=== PATIENT | female | born 1955 | race Caucasian/White ===

== ENCOUNTER → 2017-10-29 10:36 | Outpatient (CLI) | payer BC, SELFPAY ==
--- NOTE | 2017-10-29 10:40 | DI.REPORT_ITS ---
SYMPTOM/DIAGNOSIS: F/U LT ORIF TRIMALLEOLAR ANKLE FX RIGHT ANKLE: Three views. Comparison is 10/01/17. There are again seen side plate and screws transfixing the fractures of the distal right tibia and fibula. No change in alignment of the orthopaedic hardware or fracture components as seen. No new fractures or dislocations are present. Degenerative changes are seen in the hind foot. IMPRESSION: Stable right ankle.
== END ==
PROVIDERS: PCP Family Medicine; Visit Provider Student in an Organized Health Care Education/Training Program
DX: S82.851D Displaced trimalleolar fracture of right lower leg, subsequent encounter for closed fracture with routine healing (principal)
CPT/HCPCS: 73610

== ENCOUNTER 2017-12-10 12:48 | Outpatient (CLI) | payer BC, SELFPAY ==
--- NOTE | 2017-12-10 10:49 | DI.RAD_ITS ---
SYMPTOMS/DIAGNOSIS: S/P OPEN REDUCTION AND INTERNAL FIXATION, RIGHT ANKLE RIGHT ANKLE: Three views. Comparison is 10/29/17. There are again seen sideplates and screws transfixing the fractures of the medial malleolus and the distal fibula. No change in alignment of the orthopedic hardware or fracture components is noted. Moderately severe degenerative changes are seen at the ankle and hindfoot. Spurs are seen at the posterior calcaneus. Dystrophic calcifications are seen in the soft tissues in the region of the Achilles tendon.
== END 2017-12-10 13:08 ==
PROVIDERS: PCP Family Medicine; Visit Provider Student in an Organized Health Care Education/Training Program
DX: S82.851D Displaced trimalleolar fracture of right lower leg, subsequent encounter for closed fracture with routine healing (principal)
CPT/HCPCS: 73610

== ENCOUNTER 2018-01-07 11:08 | Outpatient (CLI) | payer BC, SELFPAY ==
--- NOTE | 2018-01-07 11:03 | DI.RAD_ITS ---
SYMPTOMS/DIAGNOSIS: S/P RT ANKLE ORIF RIGHT ANKLE: Two views were obtained and show plate and screw fixation of a bimalleolar fracture with no gross interval change in alignment of the fracture fragments or fixation apparatus in comparison with examination of 12/10/17.
== END 2018-01-07 11:28 ==
PROVIDERS: PCP Family Medicine; Visit Provider Student in an Organized Health Care Education/Training Program
DX: S82.851D Displaced trimalleolar fracture of right lower leg, subsequent encounter for closed fracture with routine healing (principal)
CPT/HCPCS: 73600

== ENCOUNTER 2018-01-28 12:27 | Outpatient (REF) | payer BC, SELFPAY ==
[2018-01-28 21:10] LABS: Cholesterol 181 mg/dL (50-200); HDL Cholesterol 77 mg/dL (40-60); LDL CHOLESTEROL 88 mg/dL (<100); Triglyceride 64 mg/dL (30-150)
== END 2018-01-28 12:47 ==
LOC: NCHCN 12:27
PROVIDERS: PCP Family Medicine; Visit Provider Family Medicine
DX: E78.5 Hyperlipidemia, unspecified (principal)
CPT/HCPCS: 80061; 83721

== ENCOUNTER 2018-11-12 08:11 | Outpatient (REF) | payer BC, SELFPAY ==
[2018-11-12 13:44] LABS: Anion Gap 9.5 mmol/L (3-11); BUN 26 mg/dL (7-18); CO2 25.5 mmol/L (21.0-32.0); CREATININE 0.84 mg/dL (0.55-1.02); Calcium 8.7 mg/dL (8.5-10.1); Chloride 105 mmol/L (98-107); Glucose 105 mg/dL (70-100); Potassium 4.6 mmol/L (3.5-5.1); Sodium 140 mmol/L (136-145)
[2018-11-13 13:31] LABS: ALT 24 U/L (12-78); AST 16 U/L (15-37); Albumin 3.5 g/dL (3.4-5.0); Alkaline Phosphatase 64 U/L (46-116); Bilirubin, Total 0.1 mg/dL (0.2-1.0)
== END 2018-11-12 08:31 ==
LOC: NCHCN 08:11
PROVIDERS: PCP Family Medicine; Visit Provider Family Medicine
DX: Z00.00 Encounter for general adult medical examination without abnormal findings (principal); E78.5 Hyperlipidemia, unspecified
CPT/HCPCS: 80048; 80053; 87798; 86618

== ENCOUNTER 2018-11-12 11:12 | Outpatient (CLI) | payer BC, SELFPAY ==
[2018-11-12 12:33] LABS: D-Dimer 815 ng/mlFEU (<500)
== END 2018-11-12 11:32 ==
PROVIDERS: PCP Family Medicine; Visit Provider Internal Medicine
DX: M79.661 Pain in right lower leg (principal); M17.9 Osteoarthritis of knee, unspecified
CPT/HCPCS: 36415; 85379

== ENCOUNTER 2018-11-13 08:13 | Outpatient (REF) | payer BC, SELFPAY ==
[2018-11-13 13:28] LABS: Calculated LDL 74 mg/dL; Cholesterol 156 mg/dL (50-200); HDL Cholesterol 73 mg/dL (40-60); Triglyceride 45 mg/dL (30-150)
[2018-11-14 12:15] LABS: Lyme Ab w Rflx to Lyme Confirm Negative
[2018-11-15 22:25] LABS: Anaplasma phagocytophilum Negative (Negative); B. miyamotoi PCR Negative (Negative); Babesia divergens/MO-1 Negative (Negative); Babesia duncani Negative (Negative); Babesia microti Negative (Negative); Ehrlichia chaffeensis Negative (Negative); Ehrlichia ewingii/canis Negative (Negative); Ehrlichia muris eauclairensis Negative (Negative)
== END 2018-11-13 08:33 ==
LOC: NCHCN 08:13
PROVIDERS: PCP Family Medicine; Visit Provider Family Medicine
DX: Z00.00 Encounter for general adult medical examination without abnormal findings (principal); E78.5 Hyperlipidemia, unspecified; F32.9 Major depressive disorder, single episode, unspecified; M25.50 Pain in unspecified joint; E28.319 Asymptomatic premature menopause; F10.10 Alcohol abuse, uncomplicated; W57.XXXA Bitten or stung by nonvenomous insect and other nonvenomous arthropods, initial encounter; T14.8XXA Other injury of unspecified body region, initial encounter
CPT/HCPCS: 80061; 83721; 87798; 86618

== ENCOUNTER 2018-11-20 09:23 | Outpatient (CLI) | payer BC, SELFPAY ==
--- NOTE | 2018-11-20 09:18 | DI.RAD_ITS ---
SYMPTOM/DIAGNOSIS: PAIN RIGHT KNEE: Two views. No priors. Mild periarticular spurring is seen in the medial femoral tibial joint space in the patellofemoral joint. There is chondrocalcinosis present. The joint spaces are otherwise well maintained. The bones are intact and normally mineralized. There is an enthesophyte at the superior patella. There is a small suprapatellar joint effusion. IMPRESSION: Mild to moderate degenerative changes of the right knee.
== END 2018-11-20 09:43 ==
PROVIDERS: PCP Family Medicine; Visit Provider Orthopaedic Surgery
DX: M25.561 Pain in right knee (principal); M17.11 Unilateral primary osteoarthritis, right knee
CPT/HCPCS: 73560

== ENCOUNTER 2018-12-19 11:46 | Outpatient (CLI) | payer BC, SELFPAY ==
--- NOTE | 2018-12-19 12:30 | DI.MAMMO_ITS ---
EXAM: MAMMO SCREENING CLINICAL HISTORY: SCREENING, Z12.31. TECHNIQUE: Mammograms were interpreted according to the usual protocol including computer analysis w [employer] CAD system, tomosynthesis and C-view imaging. COMPARISON: Comparison is made with previous exams. FINDINGS: The breasts are of moderate density with fairly symmetrical distribution of fibroglandular tissue. N o dominant mass or clumped microcalcification is identified in either breast. Current examination is compared with previous examinations including July 2017 and there has been no gross interval change i n appearance in comparison with the previous studies. IMPRESSION: No specific evidence of malignancy at this time. Routine screening examinations are suggested at year ly intervals in this age group according to the ACS ACR guidelines. Category 1. Breast density, categ ory B. BI-RADS Cat 1 - Negative. Breast Density - Category B - Scattered areas of fibroglandular density.
== END 2018-12-19 12:06 ==
PROVIDERS: PCP Family Medicine; Visit Provider Family Medicine
DX: Z12.31 Encounter for screening mammogram for malignant neoplasm of breast (principal)
CPT/HCPCS: 77063; 77067

== ENCOUNTER 2018-12-19 13:46 | Outpatient (CLI) | payer BC, SELFPAY ==
--- NOTE | 2018-11-12 14:02 | DI.US_ITS ---
SYMPTOMS/DIAGNOSIS: RIGHT CALF PAIN, M79.661; POSITIVE D-DIMER DUPLEX VENOUS ULTRASOUND, RIGHT LOWER EXTREMITY: Duplex evaluation of the deep venous system was performed according to the usual protocol. The deep veins are freely compressible throughout to the level of the popliteal veins. There is normal Doppler flow visible throughout and there is excellent flow augmentation with manual calf compression. CONCLUSION: No evidence of deep venous thrombosis. Note is made of Ochoa's cyst measuring about 24 x 4 x 27 mm.
== END 2018-12-19 14:06 ==
PROVIDERS: PCP Family Medicine; Visit Provider Internal Medicine
DX: M79.661 Pain in right lower leg (principal); R79.1 Abnormal coagulation profile; M71.21 Synovial cyst of popliteal space [Baker], right knee
CPT/HCPCS: 93971

== ENCOUNTER 2019-04-30 17:17 | Emergency (ER) | payer BC, SELFPAY ==
[2019-04-30 17:30] VITALS: BP 142/75; PULSE 64; RESP 18; TEMP 36.6; O2SAT 95
--- NOTE | 2019-04-30 18:08 | W.ED.GENAD ---
Discharge Plan Disposition Patient Disposition: HOME Condition: Good Discharge Details Chief Complaint: AnimalBite Clinical Impression: Dog bite of hand Primary Care Provider: Joy Herman ED Provider: Griselda Vargas Home Meds and New Rx's Prescriptions: New amoxicillin-pot clavulanate [Augmentin] 875-125 mg tablet 1 tab PO BID Qty: 8 RF: 0 Continued turmeric root extract 1,053 mg tablet 1,053 mg PO DAILY RF: 0 coenzyme Q10 [CoQ-10] 100 mg capsule 100 mg PO DAILY RF: 0 calcium carbonate [Calcium Antacid] 300 mg (750 mg) tablet,chewable 300 mg PO BID RF: 0 citalopram 20 mg tablet 20 mg PO DAILY RF: 0 estradiol [Estrace] 0.01 % (0.1 mg/gram) cream 1 gm VG DAILY Qty: 42.5 RF: 3 multivitamin 1 EACH capsule 1 ea PO DAILY RF: 0 omega-3 fatty acids-fish oil 1 EACH capsule 3 ea PO DAILY RF: 0 vitamin B complex 1 EACH capsule 1 ea PO DAILY RF: 0 Collagen Plus Vitamin C 1 EACH capsule 3 ea PO DAILY RF: 0 atorvastatin [Lipitor] 20 MG tablet 20 mg PO DAILY RF: 0 Discharge Instructions Instructions: Amoxicillin/Clavulanate Potassium (By mouth), Animal Bite (ED) Additional Instructions: Keep wound clean, dry, covered. Please monitor wound for signs of infection including redness, warmth, drainage, increased pain, fever/chills. If you develop these or other new/worsening symptoms please seek care urgently once again. Otherwise, please return in 10 days for suture removal. Please take the Augmentin as prescribed to help prevent infection. Referrals: Joy Herman [Primary Care Provider] - Discharge Data Discharge Date/Time-TO BE ENTERED AT DEPARTURE: 04/30/19 20:25 Medical Decision Making Patient is a pleasant 64-year-old [id number] female present today with chief complaint of dog bite to the right hand. She reports that she was trying to separate her 2 dogs and allergic to dogs bit her hand. She reports that her last tetanus was in the last 5 years. Reports that her dogs are up to date on immunizations. No numbness/tingling. Denies other injury. On exam, mary has a 3cm laceratio over the radial side of the first metacarpal. Full ROM, no ligamentous injury noted. With mechanism and concern for bony abnormality or possible FB, plan for xr. INDINGS: Bones/joints: No acute fracture. Joint spaces are maintained. Degenerative/posttraumatic deformity of the wrist with mild negative ulnar variance. Soft tissues: No radiodense foreign body. IMPRESSION: No acute findings. No radiodense foreign body. Discussed these findings with the patient. We discussed risks benefits of closure. The wound does gape up quite a bit and while this is a bite, I feel that a few stitches to gently reapproximate the wound edges would be appropriate. I did discuss with her that we will need to leave this somewhat loose to allow for any drainage that may occur. She voiced understanding and wished to proceed. Please see procedural note. Patient tolerated this well. Was explored to base in a bloodless field no foreign body or debris noted. Tetanus is up-to-date. We will begin the patient on Augmentin. We discussed wound care in depth. She was given return precautions, in particular signs of infection. She will return in 10 days for suture removal. All of her questions and concerns were addressed and she is in agreement this plan. HPI General Mode of arrival: ambulatory. Date/Time Provider Initiated Documentation: 04/30/19 18:07. Limitations to Documentation: no limitations. Information obtained by: patient. History of Present Illness 64 year old F presents to the emergency department with the chief complaint of right hand laceration from dog bite, described as moderate, Quality is described as aching, and is localized to the right and upper extremity. Patient reports no radiation. Patient started experiencing this hour(s) and it has been constant. No relieving factors improve symptom(s), No exacerbating factors reported . Patient notes no other symptoms.. Patient did receive the following treatments prior to arrival, none Related Data Home Medications Medication Instructions Recorded Confirmed multivitamin 1 ea PO DAILY 12/02/12 04/30/19 omega-3 fatty acids-fish oil 3 ea PO DAILY 12/02/12 04/30/19 vitamin B complex 1 ea PO DAILY 08/14/14 04/30/19 Collagen Plus Vitamin C 3 ea PO DAILY 09/13/17 04/30/19 atorvastatin [Lipitor] 20 mg PO DAILY 09/13/17 04/30/19 calcium carbonate 300 mg (750 mg) 300 mg PO BID 11/20/18 04/30/19 chewable tablet coenzyme Q10 100 mg capsule 100 mg PO DAILY 11/20/18 04/30/19 turmeric root extract 1,053 mg 1,053 mg PO DAILY tab 11/20/18 04/30/19 tablet citalopram 20 mg tablet 20 mg PO DAILY 04/22/19 04/30/19 estradiol 1 gm VG DAILY #42.5 gm 04/22/19 04/30/19 amoxicillin-pot clavulanate 1 tab PO BID #8 tab 04/30/19 [Augmentin] Previous Rx's Medication Instructions Recorded estradiol 1 gm VG DAILY #42.5 gm 04/22/19 amoxicillin-pot clavulanate 1 tab PO BID #8 tab 04/30/19 [Augmentin] Allergies Allergy/AdvReac Type Severity Reaction Status Date / Time naproxen [From Naprosyn] Allergy Severe Unverified 04/30/19 17:35 General Stated Complaint: AnimalBite ONOFRE: 4 Review of Systems Constitutional Constitutional: Reports as per HPI, Denies chills and Denies fever(s) Musculoskeletal Musculoskeletal: Reports as per HPI Integumentary/Breasts Skin/Breast: Reports as per HPI Neurologic Neurologic: Reports as per HPI, Denies sensory deficit and Denies paresthesias FORMERLY [facility], 1928–1983 Medical History 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 Trimalleolar fracture of right ankle (Acute) Surgical History Abdominal hysterectomy 1986 Oophrectomy, Both torsion fallopian tube 1986 Family History (Updated 08/17/13 @ 21:33 by ) Other Heart disease Social History Smoking/Tobacco Use Status: Never Alcohol Intake: current Alcohol Intake frequency: 3 or more drinks per day Drug use: Daily Substance use type: marijuana Do you feel safe at home: Yes Female Reproductive History Menstrual Menopause type: surgical History History 2 Para 2 Hx # Term Pregnancies Multiple births Hx # Pregnancies Ectopic pregnancies AB induced Hx Number of Living Children AB spontaneous Exam Const General: cooperative, healthy appearing, comfortable, no acute distress and well developed Nutritional Appearance: average body habitus and well nourished Orientation: alert and awake Resp Effort & Inspection: normal respiratory effort, able to speak in complete sentences and no respiratory distress Cardio Rate: regular rate Rhythm: regular rhythm Skin Trauma: laceration (as below) Neuro General: alert and awake Cognition: normal cognition Speech: speech normal Gait: normal gait Sensory Exam: no sensory deficits noted Extrem Right upper extremity: full ROM, normal capillary refill, no joint enlargement, wrist Details: normal to inspection and hand Details: normal to inspection, normal capillary refill, neuromotor exam normal, neurosensory exam normal, tendon exam normal, tenderness (over area of laceration), vascular exam Details: radial pulse present and normal capillary refill, normal ROM of fingers, no swelling and laceration; abnormal to inspection (3cm laceration into subQ radial side of 1st metacarpal) Psych Appearance: grossly normal and well kempt Mental Status: mental status grossly normal Speech and Movement: speech and movement normal Course Vital Signs Vital signs: Vital Signs Temperature 36.6 C 04/30/19 17:30 Pulse 64 04/30/19 17:30 Respiratory Rate 18 04/30/19 17:30 Blood Pressure 142/75 H 04/30/19 17:30 Pulse Oximetry 95 04/30/19 17:30 Temperature 36.6 C 04/30/19 17:30 Temperature Source Skin 04/30/19 17:30 Pulse 64 04/30/19 17:30 Respiratory Rate 18 04/30/19 17:30 Respiratory Effort Non-Labored 04/30/19 17:34 Blood Pressure 142/75 H 04/30/19 17:30 Blood Pressure Position Sitting 04/30/19 17:30 Pulse Oximetry 95 04/30/19 17:30 Oxygen Delivery Method Room Air 04/30/19 17:30 Oxygen Flow Rate 0 04/30/19 17:30 Pain Level 0 04/30/19 17:30 Procedures Laceration Laceration 1: Site: hand Side (If applicable): right Size (cm): 3 Description: linear Depth: simple, single layer Local Anesthetic: Lidocaine 1% Amount of anesthesia used (mL): 6 Pre-repair: wound explored, irrigated extensively and deep structures intact Skin layer closed with: nylon Size (cm): 5-0 Number of sutures: 2
--- NOTE | 2019-04-30 19:03 | DI.RAD_ITS ---
EXAM: XR HAND RT COMPLETE CLINICAL HISTORY: dog bite, first metacarpal TECHNIQUE: COMPARISON: No exams were available for comparison FINDINGS: Three views were obtained. There is a soft tissue defect adjacent to the 1st metacarpal consistent w ith reported dog bite injury. No acute fracture seen. Degenerative changes of the carpus noted with mild ulnar minus variance. IMPRESSION:
--- NOTE | 2019-04-30 19:16 | DI.VRAD_ITS ---
PROCEDURE INFORMATION: Exam: XR Right Hand Exam date and time: 04/30/2019 7:04 PM Age: 64 years old Clinical indication: Injury or trauma; Injury history: Dog bite; Initial encounter; Puncture; Hand; Right TECHNIQUE: Imaging protocol: XR Right hand. Views: 3 or more views. COMPARISON: No relevant prior studies available. FINDINGS: Bones/joints: No acute fracture. Joint spaces are maintained. Degenerative/posttraumatic deformity of the wrist with mild negative ulnar variance. Soft tissues: No radiodense foreign body. IMPRESSION: No acute findings. No radiodense foreign body. Dictated and Authenticated by: Parker Felix MD. Ordering:ANG Villalobos MD
--- NOTE | 2019-04-30 19:28 | NUR.NOTE ---
Nursing Note: Pt appears comfortable has 4-5 cm lac from dog bite covered with sterile gauze. she is alert and oriented.
--- NOTE | 2019-04-30 19:36 | NUR.NOTE ---
Nursing Note: Provider repairing laceration.
[2019-04-30] MEDS: Amoxicillin 875/Clav. 125 TAB PO (19:42)
--- NOTE | 2019-04-30 20:25 | NUR.NOTE ---
Nursing Note: Right hand wound dressed with kerlix and telfa. Pt verbalized understanding of wound care and antibiotic use.
== END 2019-04-30 20:25 | disposition home or self-care (01) ==
PROVIDERS: Emergency Provider Physician Assistant; PCP Family Medicine
DX: S61.451A Open bite of right hand, initial encounter (principal); W54.0XXA Bitten by dog, initial encounter
CPT/HCPCS: 12002; 73130

== ENCOUNTER 2020-03-25 14:07 | Outpatient (CLI) | payer BC, SELFPAY ==
[2020-03-26 15:15] LABS: COVID-19 RT-PCR UVMMC Result Negative (Negative)
== END 2020-03-25 14:27 ==
PROVIDERS: PCP Family Medicine; Visit Provider Surgery
DX: Z11.59 Encounter for screening for other viral diseases (principal); Z01.818 Encounter for other preprocedural examination
CPT/HCPCS: U0003

== ENCOUNTER 2020-03-29 09:13 | Day surgery (SDC) | payer BC, SELFPAY ==
--- NOTE | 2020-03-29 07:02 | W.COLOREPORT ---
Date of service: 03/29/20 Time of Service: 10:00 Colonoscopy Report Date of procedure: 03/29/20 Pre-op diagnosis general: Hx of polyps Post-op diagnosis procedure note: same (severe diverticulosis) Procedure: Colonoscopy with polypectomy Surgeon: Chetna Hussein Anesthesia proc note operative: other (General/ ASA 2/lore Coronado CRNA) Estimated blood loss (mL): 3 Pathology: other (descending polyp) Complications: None Disposition: same day Indications: Mrs Paula Horvath is a pleasant 65-year-old female who is here to discuss a screening colonoscopy. Her last colonoscopy was in 2014 and she was noted to have a tubular adenoma at 60 cm. She has not had any changes in bowel habits, melena, hematochezia, abdominal pain or unintentional weight loss. We reviewed colonoscopy procedure as well as the risks and benefits. We discussed the prep as well as Covid testing and quarantine requirements. Risks, benefits and complications have been reviewed. Complications include but are not limited to bleeding, pain, perforation, missed small lesion/polyp, sore throat, aspiration and adverse reaction to the medications. Questions were entertained and answered to their satisfaction and they wished to proceed. No guarantees were given or implied. COVID-19 testing explained to the patient. Reason for test reviewed. Quarantine per state requirements reviewed with patient. Patient understands and agrees to testing. Proceed with Covid testing 4 days prior to procedure and colonoscopy under sedation. Prep: Miralax/Dulcolax Procedure Start Time: 10:00 Procedure End Time: 10:42 Retraction Time: 16 minutes Findings: 1 polyp severe sigmoid diverticulosis mild ascending colon diverticulosis Procedure Description: After informed consent was obtained the patient was taken to the procedure room and placed in a left decubitous position. Monitors were applied and a time out was done. The patients name, date of , procedure, allergies to medications and metal in their body was reviewed. The patient was then sedated. Once sedated and comfortable a rectal exam was done. External exam was normal. Internal exam revealed a normal sphincter tone and no palpable masses. The scope was then introduced and retro-flexed. No internal hemorrhoids were identified. The scope was then advanced to the cecum without difficulty. The ileocecal valve and appendiceal orifice were identified. The prep was good. The scope was then slowly retracted over 16 minutes back into the rectum. Polyps were removed with cold forceps in the descending colon. There was mild diverticulosis in the ascending and descending colon and severe diverticulosis in the sigmoid colon. The scope was removed and the patient was woken up and taken back to Same day surgery in stable condition. The patient tolerated the procedure well and there were no immediate complications. Follow up: The patient should follow up in 5 years unless they develop changes in bowel habits or other new gastrointestinal complaints.
--- NOTE | 2020-03-29 07:03 | W.PM.DSUDISC ---
Discharge Plan Disposition Patient Disposition: HOME Condition: Good Discharge Details Reason For Visit: colonoscopy Attending Provider: Chetna Hussein Primary Care Provider: Joy Herman Home Meds and New Rx's Prescriptions: Continued melatonin 10 mg tablet 10 mg PO HS PRNRF: 0 turmeric root extract 1,053 mg tablet 1,053 mg PO DAILY RF: 0 calcium carbonate [Calcium Antacid] 300 mg (750 mg) tablet,chewable 300 mg PO BID RF: 0 citalopram 20 mg tablet 20 mg PO DAILY RF: 0 estradiol [Estrace] 0.01 % (0.1 mg/gram) cream 1 gm VG DAILY Qty: 42.5 RF: 3 multivitamin 1 EACH capsule 1 ea PO DAILY RF: 0 omega-3 fatty acids [Fish Oil Concentrate] 1,000 mg capsule 1,000 mg PO DAILY RF: 0 vitamin B complex 1 EACH capsule 1 ea PO DAILY RF: 0 Collagen Plus Vitamin C 1 EACH capsule 3 ea PO DAILY RF: 0 atorvastatin [Lipitor] 20 MG tablet 20 mg PO DAILY RF: 0 Discontinued bisacodyl [Dulcolax (bisacodyl)] 5 mg tablet,delayed release (DR/EC) 5 mg PO ONCE Qty: 4 RF: 0 polyethylene glycol 3350 17 gram powder in packet 255 g PO DAILY Qty: 15 RF: 0 Discharge Instructions Instructions: Colorectal Polyps (DC), Diverticulosis (DC) Additional Instructions: Findings: one polyp severe diverticulosis Follow up: 5 years Please call if you develop: fevers >101.5 Nausea or Vomiting Abdominal pain that is not transient DAY SURGERY UNIT POST ENDOSCOPY INSTRUCTIONS 1. Because there will be medication in your system for the next 24 hours, you may feel a little sleepy. Your coordination will be affected. Therefore: a. Do not drive or operate dangerous equipment for 24 hours. b. Do not drink alcohol beverages for 24 hours (not even beer). c. Plan to go home and rest for the day. 2. Generally there are no restrictions on your activity after a day or so has gone by, but you may feel a bit fatigued for a few days. 3 After you arrive home you may have a light meal and return to a normal diet as you can tolerate it without feeling sick to your stomach. 4. After surgery, you may feel pain or discomfort. This should be only transient, but if it persists please contact your doctor. 5. If there are any questions regarding the findings of your procedure, please feel free to contact your doctor. 6. If you are unable to contact your doctor with a problem, contact the hospital at [phone]. 7. Continue all your regular medications unless directed otherwise. I understand the above instructions and have no questions. Signature of Patient or Responsible Adult Escort Date/Time Name of Responsible Adult Escort Signature of Nurse Date/Time Activity:: Activity as Tolerated Diet:: high fiber Discharge Orders Discharge Orders: Discharge Order (Routine); Ordered 03/29/20 Ordered By: Chetna Hussein
[2020-03-29 09:36] VITALS: BP 134/78; PULSE 59; RESP 18; TEMP 36.5; O2SAT 97
[2020-03-29] MEDS: Lactated Ringers 1,000 ML 80 ML IV (09:48)
--- NOTE | 2020-03-29 10:35 | BOWEL_PTH ---
PATIENT: Vane Corea LOC: [facility] U#:[id number] AGE/SX: 65/F ROOM: RE03/29/[address]: Chetna Hussein MD : [id number] BED: DIS: 03/29/2020 SPEC #: [id number] RECD: 03/29/20 12:46 STATUS: SUNDAY REQ #: [id number] MELBA: 03/29/20 10:[address]: Chetna Hussein DEPT: Surgical Specimen RECD BY: Amaya Velasquez ENTERED: 03/29/20 12:47 SP TYPE: Bowel OTHR DR: Joy Herman Tissues: 1 - BIOPSY BOWEL Procedures: GROSS AND MICRO LEVEL 4 Comments: [id number]
[2020-03-29 11:15] VITALS: BP 132/70; PULSE 60; RESP 18; TEMP 36; O2SAT 96
== END 2020-03-29 11:35 | disposition home or self-care (01) ==
PROVIDERS: PCP Family Medicine; Visit Provider Surgery
PROC: 0DJD8ZZ Inspection of Lower Intestinal Tract, Via Natural or Artificial Opening Endoscopic (ICD-10-PCS; CPT 45378; principal; 2020-03-29 10:30)
DX: Z12.11 Encounter for screening for malignant neoplasm of colon (principal); Z86.011 Personal history of benign neoplasm of the brain; K63.5 Polyp of colon; K57.30 Diverticulosis of large intestine without perforation or abscess without bleeding
CPT/HCPCS: 45380; 88305; J2001

== ENCOUNTER 2020-05-13 13:03 | Outpatient (REF) | payer BC, SELFPAY ==
[2020-05-13 13:09] LABS: HCT 37.5 % (36.0-46.0); HGB 12.2 g/dL (11.2-15.7); MCH 31.3 pg (27.0-33.0); MCHC 32.5 % (32.0-36.0); MCV 96.2 fL (80-95); MPV 11.2 fL (8.0-11.0); Platelet Count 305 10^3/uL (130-400); RDW 15.4 % (11.7-14.6); RDW-SD 53.3 fL; WBC 5.38 10^3/uL (4.4-10.8)
[2020-05-13 13:25] LABS: ALT 32 U/L (14-59); AST 23 U/L (15-37); Albumin 3.7 g/dL (3.4-5.0); Alkaline Phosphatase 73 U/L (46-116); Anion Gap 8.4 mmol/L (3-11); BUN 23 mg/dL (7-18); Bilirubin, Total 0.3 mg/dL (0.2-1.0); CO2 28.6 mmol/L (21.0-32.0); CREATININE 0.8 mg/dL (0.55-1.02); Calcium 9.2 mg/dL (8.5-10.1); Calculated LDL 54 mg/dL (<100); Chloride 103 mmol/L (98-107); Cholesterol 151 mg/dL (<200); Glucose 92 mg/dL (74-106); HDL Cholesterol 92 mg/dL (40-60); Potassium 4.7 mmol/L (3.5-5.1); Sodium 140 mmol/L (136-145); Total Protein 7.4 g/dL (6.4-8.2); Triglyceride 25 mg/dL (<150)
== END 2020-05-13 13:04 | disposition home or self-care (01) ==
LOC: NCHCN 13:03
PROVIDERS: PCP Family Medicine; Visit Provider Family Medicine
DX: Z00.00 Encounter for general adult medical examination without abnormal findings (principal); E78.5 Hyperlipidemia, unspecified
CPT/HCPCS: 80053; 80061; 85027

== ENCOUNTER 2020-05-28 04:31 | Outpatient (CLI) | payer BC, SELFPAY ==
--- NOTE | 2020-05-28 13:42 | DI.MAMMO_ITS ---
EXAM: MG MAMMO SCREENING CLINICAL HISTORY: SCREENING,Z12.31 TECHNIQUE: Bilateral full field digital CC and MLO mammographic images were obtained with 3D tomosyn thesis and utilizing computer aided detection (CAD). COMPARISON: Available for comparison. FINDINGS: Masses/Architectural Distortion: None seen. Microcalcifications: No suspicious pleomorphic-type are seen. Stable calcifications are seen in the u pper inner quadrant of the left breast. Skin Thickening/Nipple Retraction: None. IMPRESSION: 1. No significant interval change with no specific features of malignancy noted. 2. Unless there is more urgent need, screening mammography is recommended, as per [employer] guidelines. BI-RADS Category 1 - Negative Breast Density - Category B - Scattered areas of fibroglandular density Breast density category C or D implies that the patient has dense breast tissue. Dense breast tissue is very common and is not abnormal but dense breast tissue can make it harder to find cancer on a ma mmogram. Also, dense breast tissue may increase their breast cancer risk. This information about the result of the mammogram report was provided to the patient to raise their awareness. Use this report when you speak with the patient about their risks for breast cancer, which includes their family hist ory. At that time, you may recommend for more screening tests (Ultrasound or MRI) as they might be us eful based on their risk. A negative radiographic report should not delay biopsy if a dominant or clinically suspicious mass is present. Up to ten percent of cancers are not identified on mammography. A negative report may reinforce clinical impression. Adenosis and dense breasts may obscure an underlying neoplasm. False positive reports average 6 to 10%. Patient will receive a letter notifying them of these results.
== END 2020-05-28 04:51 ==
PROVIDERS: PCP Family Medicine; Visit Provider Family Medicine
DX: Z12.31 Encounter for screening mammogram for malignant neoplasm of breast (principal)
CPT/HCPCS: 77063; 77067

== ENCOUNTER 2020-08-13 20:16 | Outpatient (REF) | payer BC, SELFPAY | END 2020-08-13 20:17 | disposition home or self-care (01) | LOC: LBN 20:16 | PROVIDERS: PCP Family Medicine; Visit Provider Obstetrics & Gynecology | DX: L29.2 Pruritus vulvae (principal) | CPT/HCPCS: 87480; 87510; 87660 ==

== ENCOUNTER 2021-06-23 08:26 | Outpatient (REF) | payer BC, SELFPAY ==
[2021-06-23 16:05] LABS: ALT 20 U/L (14-59); AST 21 U/L (15-37); Albumin 3.3 g/dL (3.4-5.0); Alkaline Phosphatase 91 U/L (46-116); BUN 14 mg/dL (7-18); Bilirubin, Total 0.3 mg/dL (0.2-1.0); CO2 28.3 mmol/L (21.0-32.0); CREATININE 0.7 mg/dL (0.55-1.02); Calcium 9.3 mg/dL (8.5-10.1); Calculated LDL 80 mg/dL (<100); Cholesterol 155 mg/dL (<200); Glucose 95 mg/dL (74-106); HDL Cholesterol 63 mg/dL (40-60); Total Protein 7.3 g/dL (6.4-8.2); Triglyceride 63 mg/dL (<150)
[2021-06-23 16:16] LABS: Anion Gap 8.7 mmol/L (3-11); Chloride 103 mmol/L (98-107); Sodium 140 mmol/L (136-145)
[2021-06-23 16:20] LABS: Vitamin D 25 Total 64.5 ng/mL (30-100)
[2021-06-23 16:29] LABS: Potassium 6.1 mmol/L (3.5-5.1)
== END 2021-06-23 08:27 | disposition home or self-care (01) ==
LOC: NCHCN 08:26
PROVIDERS: PCP Family Medicine; Visit Provider Family Medicine
DX: Z00.00 Encounter for general adult medical examination without abnormal findings (principal); E78.5 Hyperlipidemia, unspecified; F32.9 Major depressive disorder, single episode, unspecified
CPT/HCPCS: 80053; 80061; 82306

== ENCOUNTER 2021-06-23 17:14 | Emergency (ER) | payer BC, SELFPAY ==
[2021-06-23] VITALS (10 sets, daily range): BP systolic 113–143; BP diastolic 62–76; PULSE 53–65; RESP 12–21; TEMP 36.6; O2SAT 95–98
--- NOTE | 2021-06-23 17:15 | RT.EKG_ITS ---
APPROVED REPORT Exam: Resting ECG Reason for Exam: ABNORMAL LABS Patient Location: E HR:61 bpm ECG Measurements Heart Rate 61 AXIS NM 161 P 42 QRSd 88 QRS -3 QT 439 T 32 QTc 442 Conclusion Sinus rhythm...normal P axis, V-rate 60- 99 Low voltage, precordial leads...precordial leads <1.0mV. Sinus. No STEMI. I have reviewed and interpreted ECG and agree with software generated interpretation.
--- NOTE | 2021-06-23 17:33 | ED.GENADUL_ITS ---
Discharge Plan Disposition Patient Disposition: HOME Condition: Stable Discharge Details Clinical Impression: Well adult health check Primary Care Provider: Joy Herman ED Provider: Justen Leon Home Meds and New Rx's Prescriptions: Continued melatonin 10 mg tablet 10 mg PO HS PRN0RF Label Comments: does not take clobetasol 0.05 % gel 1 applic topical PRN 0RF turmeric root extract 1,053 mg tablet 1,053 mg PO DAILY 0RF calcium carbonate [Calcium Antacid] 300 mg (750 mg) tablet,chewable 300 mg PO BID 0RF citalopram 20 mg tablet 20 mg PO DAILY 0RF estradiol [Estrace] 0.01 % (0.1 mg/gram) cream 1 gm VG DAILY Qty: 42.5 3RF Rx Instructions: apply nightly for 4 weeks then decrease use to 3 times per week multivitamin 1 EACH capsule 1 ea PO DAILY 0RF omega-3 fatty acids [Fish Oil Concentrate] 1,000 mg capsule 1,000 mg PO DAILY 0RF vitamin B complex 1 EACH capsule 1 ea PO DAILY 0RF Collagen Plus Vitamin C 1 EACH capsule 3 ea PO DAILY 0RF Label Comments: pt. reports taking plain collagen no vit. c with it atorvastatin [Lipitor] 20 MG tablet 20 mg PO DAILY 0RF fluconazole 150 mg tablet 150 mg PO ONCE PRN0RF Rx Instructions: as a single dose and repeat in 72 hours Discharge Instructions Additional Instructions: At this time you are asymptomatic, EKG is not consistent with elevated potassium, and your repeat potassium level here in the ER is normal at 3.5. It was likely falsely elevated secondary to a hemolyzed sample earlier today. Please watch for new or worsening symptoms and return to the ER for any concerns. I would like you to contact your primary care provider tomorrow to discuss your ER visit and see if they would like to see you sooner than your scheduled appointment next week. Medical Decision Making This is a 66-year-old female who was sent to the ER for abnormal lab values from a standard blood draw today. Potassium noted to be 6.1. Patient is asymptomatic and denies ever having hyperkalemia. Plan is to obtain EKG, IV access CBC, CMP, magnesium, and monitor. Question whether this potassium may be from a hemolyzed blood draw earlier in the day. If potassium is truly elevated then further work-up here in the ER will be indicated. Patient appears well, nontoxic, neurologically intact, hemodynamically stable, and reports being asymptomatic. Awaiting laboratory values. EKG does not show any signs of hyperkalemia Laboratory values reveal no evidence of leukocytosis or anemia. Her electrolytes reveal a sodium of 142 potassium 3.5 anion gap of 7.6 creatinine 0.7 with a GFR greater than 60. Glucose 83. Calcium 9.2 magnesium 2.1 LFTs unremarkable. Albumin 3.2. Patient remains asymptomatic and now has a normal potassium of 3.5 without any therapy. Likely hemolyzed. I see no clear indication for further emergent work-up here in the ER. Plan is for the patient to return to the ER for new or worsening symptoms, otherwise will contact her PCP office tomorrow to discuss her ER visit, and redraw potassium level. She is already scheduled to be seen by her primary care provider next week but they may want to see her sooner and potentially get a redraw of her potassium prior to the appointment. Standard discharge and return precautions were provided. This documentation was generated using [employer] system, please disregard any oddities of phrase or misspellings. Medical Records Medical records reviewed: Yes I reviewed the patient's medical records. Lab Data Lab results reviewed: Yes I reviewed the patient's lab results. Labs: Laboratory Tests Range/Units 06/23/21 06/23/21 06/23/21 17:35 17:35 17:35 WBC (4.4-10.8) 10^3/uL 7.89 RBC (3.93-5.22) 10^6/uL 4.11 Hgb (11.2-15.7) g/dL 11.6 Hct (36.0-46.0) % 37.2 MCV (80-95) fL 90.5 MCH (27.0-33.0) pg 28.2 MCHC (32.0-36.0) % 31.2 L RDW (11.7-14.6) % 15.8 H Plt Count (130-400) 10^3/uL 405 H MPV (8.0-11.0) fL 9.5 Immature Gran % 0.4 Neutrophils % 50.1 Lymphocytes % 38.0 Monocytes % 8.9 Eosinophils % 2.0 Basophils % 0.6 Nucleated RBC % % 0 Absolute Neutrophils (1.2-6.7) 10^3/uL 3.95 Absolute Lymphocytes (1.2-3.4) 10^3/uL 3.00 Absolute Monocytes (0.1-0.8) 10^3/uL 0.70 Absolute Eosinophils (0.0-0.7) 10^3/uL 0.16 Absolute Basophils (0.0-0.2) 10^3/uL 0.05 Sodium (136-145) mmol/L 142 Potassium (3.5-5.1) mmol/L 3.5 D Chloride (98-107) mmol/L 105 Carbon Dioxide (21.0-32.0) mmol/L 29.4 Anion Gap (3-11) mmol/L 7.6 BUN (7-18) mg/dL 13 Creatinine (0.55-1.02) mg/dL 0.7 Estimated GFR/1.73 m2 (mL/min/1.73m2) >= 60.00 Glucose (74-106) mg/dL 83 Calcium (8.5-10.1) mg/dL 9.2 Magnesium (1.8-2.4) mg/dL 2.1 Total Bilirubin (0.2-1.0) mg/dL 0.2 AST (15-37) U/L 17 ALT (14-59) U/L 23 Alkaline Phosphatase (46-116) U/L 86 Total Protein (6.4-8.2) g/dL 7.7 Albumin (3.4-5.0) g/dL 3.2 L ECG Data Attestation: I personally reviewed and interpreted this ECG (s) as follows: Interpretation: Please see official report by Dr. Croft. Sinus rhythm, ventricular rate 61, no STEMI, no changes consistent with hyperkalemia. HPI General Mode of arrival: ambulatory . Date/Time Provider Initiated Documentation: 06/23/21 17:21 . Limitations to Documentation: no limitations . Information obtained by: patient . HPI Narrative: This is a 66-year-old female, past medical history of hyperlipidemia, depression, presenting to the ER for evaluation of abnormal lab values. Patient states that she feels asymptomatic. She had outpatient blood draw today for an appointment with her primary care provider for routine follow-up next week. She states that she was contacted by the office stating that she had an elevated potassium and sent to the ER for evaluation. Patient denies recent illness or trauma, headache, fever, chest pain, shortness of breath, abdominal pain, nausea, vomiting, change in bowel or bladder function, paresthesias, weakness. Patient denies any new prescribed medications and states that she has somewhat recently begun taking beet root extract for antioxidants. She denies ever having had an elevated potassium previously. Related Data Home Medications Medication Instructions Recorded Confirmed multivitamin 1 ea PO DAILY 12/02/12 06/23/21 vitamin B complex 1 ea PO DAILY 08/14/14 06/23/21 ascorbic acid 125 mg-collagen, 3 ea PO DAILY 09/13/17 06/23/21 hydrolyzed 740 mg capsule (Collagen Plus Vitamin C) atorvastatin 20 mg tablet (Lipitor) 20 mg PO DAILY 09/13/17 06/23/21 calcium carbonate 300 mg (750 mg) 300 mg PO BID 11/20/18 06/23/21 chewable tablet (Calcium Antacid) turmeric root extract 1,053 mg 1,053 mg PO DAILY tab 11/20/18 06/23/21 tablet citalopram 20 mg tablet 20 mg PO DAILY 04/22/19 06/23/21 estradiol (Estrace) 1 gm VG DAILY #42.5 gm 04/22/19 06/23/21 melatonin 10 mg tablet 10 mg PO HS PRN 01/26/20 03/25/20 omega-3 fatty acids 1,000 mg 1,000 mg PO DAILY 01/30/20 03/29/20 capsule (Fish Oil Concentrate) clobetasol 0.05 % topical gel 1 applic TOPICAL PRN g 08/13/20 06/23/21 fluconazole 150 mg tablet 150 mg PO ONCE PRN 06/23/21 06/23/21 Previous Rx's Medication Instructions Recorded estradiol (Estrace) 1 gm VG DAILY #42.5 gm 04/22/19 Allergies Allergy/AdvReac Type Severity Reaction Status Date / Time naproxen [From Naprosyn] Allergy Severe Unverified 06/23/21 17:23 General Stated Complaint: GenMedical ONOFRE: 2 Review of Systems Constitutional Constitutional: Denies fatigue, Denies fever(s), Denies headache(s) and Denies weakness Eyes Eyes: Denies change in vision ENT Ears, Nose, Mouth, and Throat: Denies headache(s) Cardiovascular Cardiovascular: Denies chest pain and Denies dyspnea Respiratory Respiratory: Denies dyspnea Gastrointestinal Gastrointestinal: Denies abdominal pain, Denies diarrhea, Denies nausea and Denies vomiting Musculoskeletal Musculoskeletal: Denies numbness and Denies tingling Integumentary/Breasts Skin/Breast: Denies rash Neurologic Neurologic: Denies headache(s), Denies numbness, Denies tingling and Denies weakness Endocrine Endocrine: Denies fatigue Hematologic/Lymphatic Hematologic/Lymphatic: Denies easy bleeding and Denies easy bruising PFSH All Active Problems Well adult health check (Acute) Rectal candidiasis (Acute) Vagina itching (Acute) Colon polyp, hyperplastic (Acute ~03/2020) Dog bite of hand (Acute) Trimalleolar fracture of right ankle (Acute) Medical History Acute abscess of areola (12/02/12) Arthralgia Cataracts, bilateral Depression Heavy alcohol consumption Hyperlipidemia Osteoarthritis of right knee Seborrheic keratosis Synovial cyst of popliteal space [Ochoa], right knee Surgical History Abdominal hysterectomy 1986 History of ankle surgery (~09/14/17) Open reduction internal fixation of right trimalleolar ankle fracture- Dr. Ordaz Oophrectomy, Both torsion fallopian tube 1986 S/P colonoscopy (~08/14/14) Dr. Caitlyn Serrano- Tubular adenoma at 60 cm Family History Other Heart disease Social History Smoking/Tobacco Use Status: Former Tobacco Use Quit Date: 03/26/09 Smoking risk assessment performed?: Yes Alcohol Intake: current Alcohol Intake frequency: 3 or more drinks per day Alcohol type: beer and wine Drug use: Daily Substance use type: marijuana Current gender identity: female Do you feel safe at home: Yes Do you feel safe in your relationship?: Yes Female Reproductive History Menstrual Menopause type: surgical History History 2 Para 2 Hx # Term Pregnancies Multiple births Hx # Pregnancies Ectopic pregnancies AB induced Hx Number of Living Children AB spontaneous Exam Const General: cooperative, healthy appearing, comfortable and no acute distress Orientation: alert, awake and oriented x3 HENMT Head: normal to inspection, normocephalic and atraumatic Face and sinus: normal facial exam Mouth: moist mucous membranes Eyes General: appearance normal, both eyes and all related structures Conjunctivae: conjunctivae normal Neck Neck: normal visual inspection, full ROM, trachea midline and supple Resp Effort & Inspection: normal respiratory effort and able to speak in complete sentences Auscultation: clear to auscultation bilaterally Cardio Rate: regular rate Rhythm: regular rhythm GI Palpation: soft, not firm, no guarding, no pulsatile masses and nontender Back/Spine/Pelvis Back: No back tenderness Skin General skin exam: no rashes or lesions noted Neuro General: patient alert, patient awake, moves all extremities and no focal motor deficits Cognition: normal cognition Speech: speech normal Gait: normal gait Motor: muscle tone normal throughout Sensory Exam: no sensory deficits noted Extrem General: normal to inspection, full ROM, capillary refill normal, no pedal edema and no calf tenderness Psych Appearance: grossly normal Mental Status: mental status grossly normal Course Vital Signs Vital signs: Vital Signs Temperature 36.6 C 06/23/21 17:16 Pulse 60 06/23/21 17:16 Respiratory Rate 16 06/23/21 17:16 Blood Pressure 143/76 H 06/23/21 17:16 Pulse Oximetry 98 06/23/21 17:16 Temperature 36.6 C 06/23/21 17:16 Temperature Source Skin 06/23/21 17:16 Pulse 60 06/23/21 17:16 Respiratory Rate 16 06/23/21 17:16 Respiratory Effort 06/23/21 17:26 Blood Pressure 143/76 H 06/23/21 17:16 Blood Pressure Position Sitting 06/23/21 17:16 Pulse Oximetry 98 06/23/21 17:16 Oxygen Delivery Method Room Air 06/23/21 17:16 Oxygen Flow Rate 0 06/23/21 17:16 Pain Level 0 06/23/21 17:16 PAWSS Have you Been Recently Intoxicated or Drunk Within the Last 30 days?: No Have you Ever Experienced Previous Episodes of Alcohol Withdrawal?: No Have you ever Experienced Withdrawal Seizures?: No Have you ever Experienced Delirium Tremens(DT)s?: No Have you ever undergone Alcohol Rehabilitation Treatment (i.e, inpt ot outpatient treatment programs)?: No Have you ever Experienced Blackouts?: No Have you ever Combined Alcohol with other Downers within the last 90 days?: No Have you ever Combined Alcohol with any other Substance of Abuse during the last 90 days?: No Positive Blood Alcohol level on Presentation? [PCS.BAL]: No Evidence of Increased Autonomic Activity (i.e. HR>120, tremor, sweating, agitation, nausea)?: No Result: 0
[2021-06-23 17:43] LABS: Abs Immature Grans 0.03 10^3/uL (0.0-0.06); Absolute Basophil Count 0.05 10^3/uL (0.0-0.2); Absolute Eosinophil Count 0.16 10^3/uL (0.0-0.7); Absolute Neutrophil Count 3.95 10^3/uL (1.2-6.7); Basophils % 0.6; HCT 37.2 % (36.0-46.0); HGB 11.6 g/dL (11.2-15.7); Immature Grans % 0.4; MCH 28.2 pg (27.0-33.0); MCHC 31.2 % (32.0-36.0); MCV 90.5 fL (80-95); MPV 9.5 fL (8.0-11.0); Monocytes % 8.9; Neutrophils % 50.1; Nucleated RBC 0 %; Platelet Count 405 10^3/uL (130-400); RBC 4.11 10^6/uL (3.93-5.22); RDW 15.8 % (11.7-14.6); RDW-SD 52.7 fL; WBC 7.89 10^3/uL (4.4-10.8)
[2021-06-23 17:53] LABS: Magnesium 2.1 mg/dL (1.8-2.4)
[2021-06-23 17:58] LABS: ALT 23 U/L (14-59); AST 17 U/L (15-37); Albumin 3.2 g/dL (3.4-5.0); Alkaline Phosphatase 86 U/L (46-116); Anion Gap 7.6 mmol/L (3-11); BUN 13 mg/dL (7-18); Bilirubin, Total 0.2 mg/dL (0.2-1.0); CO2 29.4 mmol/L (21.0-32.0); CREATININE 0.7 mg/dL (0.55-1.02); Calcium 9.2 mg/dL (8.5-10.1); Chloride 105 mmol/L (98-107); Glucose 83 mg/dL (74-106); Potassium 3.5 mmol/L (3.5-5.1); Sodium 142 mmol/L (136-145); Total Protein 7.7 g/dL (6.4-8.2)
== END 2021-06-23 18:30 | disposition home or self-care (01) ==
PROVIDERS: Emergency Provider Physician Assistant; PCP Family Medicine
DX: E87.5 Hyperkalemia (principal)
CPT/HCPCS: 80053; 93005; 99283; 83735; 85025; 93010

== ENCOUNTER → 2021-08-12 01:17 | Outpatient (CLI) | payer BC, SELFPAY ==
--- NOTE | 2021-08-12 09:00 | DI.DEXA_ITS ---
Exam(s) XR DEXA BONE DENSITY W/WO BRADEN EXAM: XR DEXA BONE DENSITY W/WO BRADEN CLINICAL HISTORY: SCREENING FOR OSTEOPOROSIS, Z13.820; MENOPAUSE, Z78.0 TECHNIQUE: COMPARISON: Comparison examination is 10/31/2004. FINDINGS: Lateral Spine Image: Unremarkable. No compression deformities identified. Left hip: Total T-Score: 0.3. This compares to 0.5 on the prior examination resulting in a decrease of 1.6 in t he bone mineral density. Total Z-Score: 1.8 T- and Z-scores: Within normal limits. Lumbar Spine: Total T-Score: -1.1. This compares with -0.4 on the prior examination and a decrease of 4.6 percent i n the bone mineral density. Total Z-Score: 0.9 T- and Z-scores: Osteopenia. IMPRESSION: No evidence of osteoporosis.
== END ==
PROVIDERS: PCP Family Medicine; Visit Provider Family Medicine
DX: M85.88 Other specified disorders of bone density and structure, other site (principal); Z78.0 Asymptomatic menopausal state
CPT/HCPCS: 77080

== ENCOUNTER 2022-10-03 10:36 | Outpatient (REF) | payer BC, SELFPAY ==
[2022-10-03 15:09] LABS: ALT 25 U/L (14-59); AST 20 U/L (15-37); Albumin 3.3 g/dL (3.4-5.0); Alkaline Phosphatase 83 U/L (46-116); Anion Gap 8.1 mmol/L (3-11); BUN 17 mg/dL (7-18); Bilirubin, Total 0.4 mg/dL (0.2-1.0); CO2 27.9 mmol/L (21.0-32.0); CREATININE 0.8 mg/dL (0.55-1.02); Calcium 9.3 mg/dL (8.5-10.1); Chloride 106 mmol/L (98-107); Estimated GFR 79.71 (mL/min/1.73m2); Glucose 101 mg/dL (74-106); Potassium 4.8 mmol/L (3.5-5.1); Sodium 142 mmol/L (136-145)
[2022-10-03 15:47] LABS: Vitamin D 25 Total 58.7 ng/mL (30-100)
== END 2022-10-03 10:37 | disposition home or self-care (01) ==
LOC: NCHCN 10:36
PROVIDERS: PCP Family Medicine; Visit Provider Family Medicine
DX: E78.5 Hyperlipidemia, unspecified (principal); E55.9 Vitamin D deficiency, unspecified; F10.10 Alcohol abuse, uncomplicated
CPT/HCPCS: 80053; 82306

== ENCOUNTER → 2022-11-17 00:13 | Outpatient (CLI) | payer BC, SELFPAY ==
--- NOTE | 2022-11-17 | DI.MAMMO_ITS ---
Exam(s) MAMMO SCREENING EXAM: MAMMO SCREENING CLINICAL HISTORY: SCREENING MAMMO FOR BREAST CANCER Z12.31 TECHNIQUE: Bilateral full field digital CC and MLO mammographic images were obtained with 3D tomosyn thesis and utilizing computer aided detection (CAD). COMPARISON: Available for comparison. FINDINGS: Masses/Architectural Distortion: None seen. Microcalcifications: No suspicious pleomorphic-type are seen. There are stable calcifications in the upper inner quadrant of the left breast. Skin Thickening/Nipple Retraction: None. IMPRESSION: 1. No significant interval change with no specific features of malignancy noted. 2. Unless there is more urgent need, screening mammography is recommended, as per [employer] guidelines. BI-RADS Category 1 - Negative Breast Density - Category B - Scattered areas of fibroglandular density Breast density category C or D implies that the patient has dense breast tissue. Dense breast tissue is very common and is not abnormal but dense breast tissue can make it harder to find cancer on a ma mmogram. Also, dense breast tissue may increase their breast cancer risk. This information about the result of the mammogram report was provided to the patient to raise their awareness. Use this report when you speak with the patient about their risks for breast cancer, which includes their family hist ory. At that time, you may recommend for more screening tests (Ultrasound or MRI) as they might be us eful based on their risk. A negative radiographic report should not delay biopsy if a dominant or clinically suspicious mass is present. Up to ten percent of cancers are not identified on mammography. A negative report may reinforce clinical impression. Adenosis and dense breasts may obscure an underlying neoplasm. False positive reports average 6 to 10%. Patient will receive a letter notifying them of these results.
== END ==
PROVIDERS: PCP Family Medicine; Visit Provider Family Medicine
DX: Z12.31 Encounter for screening mammogram for malignant neoplasm of breast (principal)
CPT/HCPCS: 77063; 77067

== ENCOUNTER 2023-10-08 09:30 | Emergency (ER) | payer BC, SELFPAY ==
[2023-10-08 09:34] VITALS: BP 127/72; PULSE 73; RESP 18; TEMP 36.4; O2SAT 99
--- NOTE | 2023-10-08 09:45 | DI.RAD_ITS ---
Exam(s) XR KNEE LT 3V AP,LAT,NATHAN EXAM: XR KNEE LT 3V AP,LAT,NATHAN CLINICAL HISTORY: knee pain. TECHNIQUE: 2D digital imaging was performed. COMPARISON: No exams were available for comparison FINDINGS: 3 views No evidence of acute fracture but there is prominent joint effusion. There is also prominent chondro calcinosis in the medial lateral compartments. Some degenerative change noted in the medial compartm ent and milder degenerative changes in the other compartments. Some degenerative pointing of the tib ial spines is noted. Bone density normal. No osseous lesions. IMPRESSION: Degenerative changes. Prominent chondrocalcinosis. Joint effusion. Suspect internal derangement. DATA REPOSITORY: RADIATION DOSE DELIVERED:
--- NOTE | 2023-10-08 09:45 | DI.RAD_ITS ---
Exam(s) XR ANKLE LT COMPLETE EXAM: XR ANKLE LT COMPLETE CLINICAL HISTORY: ankle pain. TECHNIQUE: 2D digital imaging was performed. COMPARISON: No exams were available for comparison FINDINGS: 3 views There is soft tissue swelling around the ankle, more so laterally than medially. There is no widenin g the ankle mortise. No fracture of the lateral malleolus evident. Osteophytic density subjacent to the medial malleolus may represent avulsion injury. Otherwise, there is an inferior calcaneal spur of moderate size as well as adjacent calcification in the plantar fascia at this level. Posteriorly there is significant thickening of the Achilles tendon and lung truly orientated calcific ation within this tendon consistent with chronic calcific tendinosis of the Achilles. Bone density n ormal. No osseous lesions. There are obvious degenerative changes in the tibiotalar joint and subta lar joint IMPRESSION: Calcification adjacent to the medial malleolus is either accessory ossicle or avulsion injury. The m ore prominent swelling is over the opposite-lateral aspect of the ankle. There is no fracture of the lateral malleolus evident. Also no fracture of the posterior malleolus. Other findings as above including chronic calcific Achilles tendinosis as well as calcification in th e plantar fascia adjacent to moderate size inferior calcaneal spur. DATA REPOSITORY: RADIATION DOSE DELIVERED:
--- OUTSIDE RECORDS SUMMARY | 2023-10-08 10:40 | XMS_ITS | Encounter Summary ---
Author Organization [facility] Address [address] [place] [address] Care Team Providers Care Laborer Plumbing Name Role Phone Joy Herman MD Primary Care Provider Encounter Details Date Type Department Care Team (Late st Contact Info) Description 03/29/2020 Lab Requisition [facility] Pathology & Laboratory Medicine - [address] [address] Niki Hussein MD [address] [place] [address] [id number] Encounter for other general examination Social History Tobacco Use Types Packs/Day Years Used Date Smoking Tobacco: Never Assessed Sex and Gender Information Value Date Recorded Sex Assigned at Not on file Gender Identity Not on file Sexual Orientation Not on file documented as of this encounter Plan of Treatment Not on file documented as of this encounter Procedures Procedure Name Priority Date/Time Associated Diagnosis Comments SURGICAL PATHOLOGY Today 03/29/2020 10 :35 EST Encounter for other general examination documented in this encounter Results * SURGICAL PATHOLOGY (03/29/2020 10:35 EST) Final Diagnosis A. COLON, DESCENDING, POLYP, BIOPSY: - Colonic mucosa with focal hyperplastic change. - Deeper sections x3 examined. 03/30/2020 16:36 EST [facility] Attestation By the signature below, the attending physician certifies that they have 1) personally conducted a gross and/or microscopic examination of the described specimen(s), and/or personally interpreted the results of laboratory testing of the described specimen(s), and 2) personally rendered or confirmed the above diagnosis. 03/30/2020 16:36 [facility] at 1636 Clinical History H/O colon polyp 03/30/2020 16:36 [facility] Gross Description A. Received in formalin labelled with proper patient identification (initials M, L) and descending colon polyp are 2 fragments of ruiz tissue measuring 0.2 cm and 0.3 cm in greatest dimension. The specimens are submitted in A1. CALI MAN(ASCP) 03/29/2020 16:19 03/30/2020 16:36 [facility] Performing Lab [facility] 03/30/2020 16:36 [facility] Scanned Images 03/30/2020 16:36 [facility] Tissue POLYP OF COLON / Unknown 03/29/2020 10:35 EST 03/29/2020 16:04 EST Niki Hussein MD PATHOLOGY [facility] [address] [place] [address] documented in this encounter Visit Diagnoses Diagnosis Encounter for other general examination documented in this encounter Care Teams Laborer Plumbing Relationship Specialty Start Date End Date Joy Herman MD [address] [place] [id number] PCP - General 03/29/20 documented as of this encounter
--- OUTSIDE RECORDS SUMMARY | 2023-10-08 10:40 | XMS_ITS | Encounter Summary ---
Author Organization [facility] Address [address] [place] [address] Care Team Providers Care Lead Cook Name Role Phone Unavailable Primary Care Provider Unavailabl e Encounter Details Date Type Department Care Team ([facility] st Contact Info) Description 10/09/2006 Results Only [facility] [address] [place] [address] Pineda Cesar DPM [address] [place] [phone] Social History Tobacco Use Types Packs/Day Years Used Date Smoking Tobacco: Never Assessed Sex and Gender Information Value Date Recorded Sex Assigned at Not on file Gender Identity Not on file Sexual Orientation Not on file documented as of this encounter Plan of Treatment Not on file documented as of this encounter Procedures Procedure Name Priority Date/Time Associated Diagnosis Comments SURGICAL PATHOLOGY Routine 10/09/2006 0:00 EDT documented in this encounter Results * SURGICAL PATHOLOGY (10/09/2006 0:00 EDT) Pathology Report: SURGICAL PATHOLOGY REPORT Reports generated via electronic interface contain original data; however they are lacking the format of the original report. Caution should be taken when reading/interpreti ng unformatted reports. Name: ? VANE CURRY ? Accession #: ? [id number] ? : ? 1955 (Age: 51) ??F ? Collect Date: ? 10/09/2006 ? Location: ? [facility] ? Receive Date: ? 10/11/2006 ? Provider: PINEDA CESAR DPM Copy to: MARILEE TROTTER MD ? Final Pathologic Diagnosis: ? Skin of foot, left, biopsy: - Features consistent with porokeratosis plantaris. Microscopic Description: ? Sections consist of a somewhat fragmented portion of skin that transects the lower epidermis and papillary dermis. ??The stratum corneum is composed of a thick layer of compact keratin, consistent with acral site. ??Centrally, there is a discrete column of parakeratosis. ??The epidermis, beneath the zone of parakeratosis, is invaginated and has an intact granular layer. ??The remaining epidermis is relatively unremarkable. ??There is no appreciable inflammation. (Dr. Olsen)/[facility] Document reviewed and electronically signed by: Bell Olsen MD Report ??Date: 10/12/2006 14:56 By the signature above, the attending physician certifies that he/she has personally conducted a gross and/or microscopic examination of the described specimens and rendered or confirmed the above diagnosis. Specimen(s) Received: ? Benign lesion L foot Clinical History: ? Porokeratosis L foot; clinical diagnosis code: ??757.39, 078.19 Gross Description: ? Received in formalin labelled MalabreSpeicher and left foot is a 0.6 x 0.5 x 0.3 cm ruiz-white skin shave. Bisected and submitted in one cassette. (Dr. Amato ??[facility])/[facility] End of Report [facility] 10/09/2006 10/11/2006 10: 25 EDT Pineda Cesar DPM PATHOLOGY [facility] [address] [place] [address] documented in this encounter Visit Diagnoses Not on filedocumented in this encounter
--- OUTSIDE RECORDS SUMMARY | 2023-10-08 10:40 | XMS_ITS | Encounter Summary ---
Author Organization [facility] Address [address] [place] [address] Care Team Providers Care Computational Theory Scientist Name Role Phone Unavailable Primary Care Provider Unavailabl e Encounter Details Date Type Department Care Team (Late st Contact Info) Description 01/21/2004 Results Only [facility] - Maple conversion [address] [place] [address] Reno Andre MD [address] [place] [address] Social History Tobacco Use Types Packs/Day Years Used Date Smoking Tobacco: Never Assessed Sex and Gender Information Value Date Recorded Sex Assigned at Not on file Gender Identity Not on file Sexual Orientation Not on file documented as of this encounter Plan of Treatment Not on file documented as of this encounter Procedures Procedure Name Priority Date/Time Associated Diagnosis Comments SURGICAL PATHOLOGY Routine 01/21/2004 0:00 EDT documented in this encounter Results * SURGICAL PATHOLOGY (01/21/2004 0:00 EDT) Pathology Report: SURGICAL PATHOLOGY REPORT Reports generated via electronic interface contain original data; however they are lacking the format of the original report. Caution should be taken when reading/interpreti ng unformatted reports. Name: ? VANE CURRY ? Accession #: ? [id number] ? : ? 1955 (Age: 48) ??F ? Collect Date: ? 01/21/2004 ? Location: ? [facility] ? Receive Date: ? 01/21/2004 ? Provider: JULIA ANDRE MD Copy to: MARILEE TROTTER MD ? Final Pathologic Diagnosis: ? Colon, at 20.0 cm, polyp, biopsy: ? - ??Hyperplastic polyp. Document reviewed and electronically signed by: Stephen Spears MD Report ??Date: 01/25/2004 17:03 By the signature above, the attending physician certifies that he/she has personally conducted a gross and/or microscopic examination of the described specimens and rendered or confirmed the above diagnosis. Specimen(s) Received: ? Polyp @ 20 cm Clinical History: ? Screening colonoscopy, sigmoid polyp Gross Description: ? Received in Hollande's fixative labelled Nahomy and #1 polyp at 20 cm is a single 0.6 x 0.5 x 0.5 cm soft tissue fragment. ??The specimen is bisected and submitted entirely in one cassette. ??(Dr. Hua-)/[facility] [place] End of Report [facility] 01/21/2004 01/21/2004 15: 28 EDT Reno Andre MD PATHOLOGY ORDERABLES [facility] [address] [place] [address] documented in this encounter Visit Diagnoses Not on filedocumented in this encounter
--- OUTSIDE RECORDS SUMMARY | 2023-10-08 10:40 | XMS_ITS | Encounter Summary ---
Author Organization [facility] Address [address] [place] [address] Care Team Providers Care Radiographic Technologist Name Role Phone Unavailable Primary Care Provider Unavailabl e Encounter Details Date Type Department Care Team (Late st Contact Info) Description 12/31/2007 Before PRISM Converted Visit (Maple) [facility] - Maple conversion [address] [place] [address] Armand Zavala MD [address] [place] [phone] Social History Tobacco Use Types Packs/Day Years Used Date Smoking Tobacco: Never Assessed Sex and Gender Information Value Date Recorded Sex Assigned at Not on file Gender Identity Not on file Sexual Orientation Not on file documented as of this encounter Plan of Treatment Not on file documented as of this encounter Procedures Procedure Name Priority Date/Time Associated Diagnosis Comments SURGICAL PATHOLOGY Routine 12/31/2007 0:00 EDT documented in this encounter Results * SURGICAL PATHOLOGY (12/31/2007 0:00 EDT) Pathology Report: SURGICAL PATHOLOGY REPORT ? Reports generated via electronic interface contain original data; ? however they are lacking the format of the original report. ? Caution should be taken when reading/interpreting unformatted reports. ? Name: ? MALABRESPEICHER, VANE ? Accession #: ? [id number] ? : ? 1955 (Age: 52) ??F ? Collect Date: ? 12/31/2007 ? Location: ? [facility] ? Receive Date: ? 01/01/2008 ? Provider: ARMAND ZAVALA MD ? Copy to: MARILEE FINE MD ? Final Pathologic Diagnosis: ? Skin of vulva, labia, biopsy: ? 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 ??See comment. ? Comment: ? The biopsy primarily shows features of chronic irritation and rubbing ? (lichen simplex chronicus). ??On sections prepared with PAS-amylase stain, a ? small number of fungal hyphae are identified within the epidermis and stratum ?? corneum. ??The morphology of the fungal hyphae is most suggestive of ? dermatophytosis (tinea). ??Yeast forms are not identified; however, candidiasis ?? cannot be entirely excluded given the small number of organisms. ??(Dr. Olsen)/[facility] ? Microscopic Description: ? Sections consist of a punch biopsy of skin to the mid reticular dermis. ? The stratum corneum is thickened by compact orthohyperkeratosis with subtle foci of parakeratosis. ??The epidermis shows a marked degree of irregular hyperplasia consisting of elongate and thickened rete ridges. ??The keratinocytes show ? reactive nuclear changes, but generally mature in an jailkeeper fashion. ??The ? granular layer is thickened. ??The dermis has thick bundles of collagen that ? extend into some of the papillae. ??There is a moderately dense superficial ? interstitial inflammatory infiltrate. ??The infiltrate is composed of ? lymphocytes, histiocytes, and plasma cells. ??A small number of eosinophils are ?? noted. ??In some of the deeper sections, there are occasional neutrophils and ? eosinophils within the epidermis. ??On sections prepared with PAS-amylase stain, a small number of hyphae are noted within the superficial epidermis and stratum corneum. ??(Dr. Olsen)/[facility] ? Document reviewed and electronically signed by: ? Bell Babb. Raúl, ? Report ??Date: 01/03/2008 16:23 ? By the signature above, the attending physician certifies that he/she has ? personally conducted a gross and/or microscopic examination of the described ? specimens and rendered or confirmed the above diagnosis. ? Specimen(s) Received: ? Labial bx ? Clinical History: ? Long-standing vulvar soreness and discomfort ? Gross Description: ? Received in formalin labelled MalabreSpeicher and labial bx is a 0.4 x 0.2 x 0.1 cm shave biopsy of ruiz skin. ??Submitted intact in one cassette. ??(Dr. Easton)/[facility] ? End of Report ? ELA[facility] JOYA 12/31/2007 01/01/2008 9:3 8 EDT Armand Zavala MD PATHOLOGY ORDERABLES [facility] [address] [place] [address] documented in this encounter Visit Diagnoses Not on filedocumented in this encounter
--- OUTSIDE RECORDS SUMMARY | 2023-10-08 10:40 | XMS_ITS | Encounter Summary ---
Author Organization [facility] Address [address] [place] [address] Care Team Providers Care Bed Spring Maker Name Role Phone Betina Jara MD Primary Care Provider [phone] Joy Herman MD Primary Care Provider [phone] Encounter Details Date Type Department Care Team (Late st Contact Info) Description 03/25/2020 Lab Requisition [facility] Pathology & Laboratory Medicine - [address] [address] Outr Resulting Lab, Provider Social History Tobacco Use Types Packs/Day Years Used Date Smoking Tobacco: Never Assessed Sex and Gender Information Value Date Recorded Sex Assigned at Not on file Gender Identity Not on file Sexual Orientation Not on file documented as of this encounter Plan of Treatment Not on file documented as of this encounter Procedures Procedure Name Priority Date/Time Associated Diagnosis Comments ZZCOVID-19 TEST [facility] PCR Today 03/25/2020 10:27 EST COVID-19 TESTING Routine 03/25/2020 10:2 7 EST documented in this encounter Results * COVID-19 TEST [facility] PCR (03/25/2020 10:27 EST) Swab ENTIRE NASOPHARYNX / Unknown 03/25/2020 10:27 EST 03/26/2020 8:30 EST Provider Outr Resulting Lab MICROBIOLOGY - GENERAL ORDERABLES [facility] [address] [place] [address] * COVID-19 TESTING (03/25/2020 10:27 EST) COVID-19 rt-PCR Result Negative Negative 03/26/2020 15:[address] [facility] Comment: This test has not been FDA cleared or approved. This test has been authorized by FDA under an EUA for use by authorized laboratories. This test has been authorized only for detection of nucleic acid from 2019-nCoV, not for any other viruses or pathogens. This test is only authorized for the duration of the declaration that circumstances exist justifying the authorization of emergency use of in vitro diagnostic tests for detection and/or diagnosis of 2019-nCoV under section 564(b)(1) of Act, 21 U.S.C ?? 360bbb-3(b) (1), unless the authorization is terminated or revoked sooner. Negative results do not preclude 2019-nCoV infection and should not be used as the sole basis for treatment or other patient management decisions. Negative results must be combined with clinical observations, patient history, and epidemiological information. Performed on the [employer] Fusion instrument Performing Lab [facility] 03/26/2020 15:[address] [facility] Swab 03/25/2020 10:2 7 EST 03/26/2020 8:30 EST Provider Outr Resulting Lab MICROBIOLOGY - GENERAL ORDERABLES [facility] [address] [place] [address] documented in this encounter Visit Diagnoses Not on filedocumented in this encounter Care Teams Bed Spring Maker Relationship Specialty Start Date End Date Betina Jara MD [address] [place] [address] PCP - General 08/20/14 03/28/20 Joy Herman MD [address] [place] [address] PCP - General 03/29/20 documented as of this encounter
--- OUTSIDE RECORDS SUMMARY | 2023-10-08 10:40 | XMS_ITS | Referral Summary ---
Author Organization [facility] Address [address] [place] [address] Care Team Providers Care Horse Show Manager Name Role Phone Joy Herman MD Primary Care Provider [phone] Social History Tobacco Use Types Packs/Day Years Used Date Smoking Tobacco: Never Assessed Sex and Gender Information Value Date Recorded Sex Assigned at Not on file Gender Identity Not on file Sexual Orientation Not on file Plan of Treatment Not on file Care Teams Horse Show Manager Relationship Specialty Start Date End Date Joy Herman MD [address] [place] [phone] PCP - General 03/29/20
--- OUTSIDE RECORDS SUMMARY | 2023-10-08 10:40 | XMS_ITS | Clinical Summary ---
Author Organization [facility] Address [address] [place] [address] Care Team Providers Care Shaker Operator Name Role Phone Joy Herman MD Primary Care Provider [phone] Social History Tobacco Use Types Packs/Day Years Used Date Smoking Tobacco: Never Assessed Sex and Gender Information Value Date Recorded Sex Assigned at Not on file Gender Identity Not on file Sexual Orientation Not on file Plan of Treatment Health Maintenance Due Date Last Done Comments Hepatitis C Screen 1955 RSV Immunization ( o r 60+ Years) (1 - 1-dose 60+ series) 2013 Fall Risk Screening 2018 COVID-19 Vaccine (2022- season) 2022 Care Teams Shaker Operator Relationship Specialty Start Date End Date Joy Herman MD [address] [place] [phone] PCP - General 03/29/20
--- OUTSIDE RECORDS SUMMARY | 2023-10-08 10:40 | XMS_ITS | Encounter Summary ---
Author Organization [facility] Address [address] [place] [address] Care Team Providers Care Cook Fish And Chips Name Role Phone Unavailable Primary Care Provider Unavailabl e Encounter Details Date Type Department Care Team (Late st Contact Info) Description 08/14/2014 Results Only [facility] [phone] Pernell Montero, DO [address] [facility] [address] [place], [place] [id number] Social History Tobacco Use Types Packs/Day Years Used Date Smoking Tobacco: Never Assessed Sex and Gender Information Value Date Recorded Sex Assigned at Not on file Gender Identity Not on file Sexual Orientation Not on file documented as of this encounter Plan of Treatment Not on file documented as of this encounter Procedures Procedure Name Priority Date/Time Associated Diagnosis Comments SURGICAL PATHOLOGY Routine 08/14/2014 20 :39 EDT documented in this encounter Results * SURGICAL PATHOLOGY (08/14/2014 20:39 EDT) Pathology Report: SURGICAL PATHOLOGY REPORT Reports generated via electronic interface contain original data; however they are lacking the format of the original report. Caution should be taken when reading/interpret ing unformatted reports. Name: ? VANE DICKSON ? Accession #: ? [id number] ? : ? 1955 (Age: 59) ??F ? Collect Date: ? 08/14/2014 ? Location: ? [facility] ? Receive Date: ? 08/14/2014 ? Provider: PERNELL MONTERO DO Copy to: ANGELA INFANTE MACHINE SOLE LEVELER ? Final Pathologic Diagnosis: COLON, POLYP AT 60 CM, BIOPSY: - ??Fragment of tubular adenoma. Document reviewed and electronically signed by: SHAYE ANNA MD Report ??Date: 08/20/2014 15:58 By the signature above, the attending physician certifies that he/she has personally conducted a gross and/or microscopic examination of the described specimens and rendered or confirmed the above diagnosis. Specimen(s) Received: Colon polyp 60 cm Clinical History: Colorectal screen Gross Description: ? Received in formalin labelled with proper patient identification (initials M, L) and colon polyp 60 cm is a single pink-ruiz tissue fragment (0.3 x 0.2 x 0.1 cm). Submitted intact in 1. Dr. Mahogany Kumar 08/15/2014 11:15 AM End of Report [facility] 08/14/2014 20:3 9 EDT 08/14/2014 20:39 EDT Pernell Montero DO PATHOLOGY ORDER LOKI [facility] [address] [place] [address] documented in this encounter Visit Diagnoses Not on filedocumented in this encounter
--- OUTSIDE RECORDS SUMMARY | 2023-10-08 10:40 | XMS_ITS | Encounter Summary ---
Author Organization [facility] Address [address] [place] [address] Care Team Providers Care Earth Observations Chief Scientist Name Role Phone Unavailable Primary Care Provider Unavailabl e Encounter Details Date Type Department Care Team (Latest Contact Info) Description 08/14/2014 12:18 EDT - 08/14/2014 23:59 EDT Hospital Encounter [address] [address] Unknown, Provider, Discharge Disposition: Home or Self Care Social History Tobacco Use Types Packs/Day Years Used Date Smoking Tobacco: Never Assessed Sex and Gender Information Value Date Recorded Sex Assigned at Not on file Gender Identity Not on file Sexual Orientation Not on file documented as of this encounter Discharge Disposition Disposition Code Departure Means Destination Home or Self Long-Term documented in this encounter Plan of Treatment Not on file documented as of this encounter Visit Diagnoses Not on filedocumented in this encounter
[2023-10-08 10:47] VITALS: BP 127/72; PULSE 73; RESP 18; TEMP 36.4; O2SAT 99
--- NOTE | 2023-10-08 11:56 | ED.GENADUL_ITS ---
Discharge Plan Disposition Patient Disposition: Home Discharge Details Clinical Impression: Acute pain of left knee, Effusion of knee joint, left, Ankle pain, left Primary Care Provider: Joy Herman ED Provider: Parris Sams Home Meds and New Rx's Prescriptions: No Action melatonin 10 mg tablet 10 mg PO HS PRN Patient Comments: does not take clobetasol 0.05 % gel 1 applic topical PRN turmeric root extract 1,053 mg tablet 1,053 mg PO DAILY calcium carbonate [Calcium Antacid] 300 mg (750 mg) tablet,chewable 300 mg PO BID citalopram 20 mg tablet 20 mg PO DAILY estradiol [Estrace] 0.01 % (0.1 mg/gram) cream 1 gm VG DAILY Qty: 42.5 3RF Rx Instructions: apply nightly for 4 weeks then decrease use to 3 times per week multivitamin 1 EACH capsule 1 ea PO DAILY omega-3 fatty acids [Fish Oil Concentrate] 1,000 mg capsule 1,000 mg PO DAILY vitamin B complex 1 EACH capsule 1 ea PO DAILY Collagen Plus Vitamin C 1 EACH capsule 3 ea PO DAILY Patient Comments: pt. reports taking plain collagen no vit. c with it atorvastatin [Lipitor] 20 MG tablet 20 mg PO DAILY fluconazole 150 mg tablet 150 mg PO ONCE PRN Rx Instructions: as a single dose and repeat in 72 hours Discharge Instructions Instructions: Ankle sprain, Joint Pain Additional Instructions: * Please continue brace as needed for stability and comfort * An MRI might be beneficial to further evaluate injuries in your knee and ankle. This can be performed as an outpatient. Contact your primary care provider to arrange this. * continue motrin and tylenol as needed for pain Discharge Data Discharge Date/Time-TO BE ENTERED AT DEPARTURE: 10/08/23 10:49 HPI General Date/Time Provider Initiated Documentation: 10/08/23 09:47 . Limitations to Documentation: no limitations . Information obtained by: patient . HPI Narrative: 68-year-old female with significant past medical history presents for evaluation of left knee and ankle pain after a fall. She reports that she fell 3 days ago. She reports it was a trip and fall. She states that she noticed some swelling of the knee and ankle. Has been taking ibuprofen with some improvement. Has also been wearing a brace and using crutches to help with her symptoms. Related Data Home Medications ?Medication ?Instructions ?Recorded ?Confirmed multivitamin 1 ea PO DAILY 12/02/12 06/23/21 vitamin B complex 1 ea PO DAILY 08/14/14 06/23/21 ascorbic acid 125 mg-collagen, 3 ea PO DAILY 09/13/17 06/23/21 hydrolyzed 740 mg capsule (Collagen Plus Vitamin C) atorvastatin 20 mg tablet (Lipitor) 20 mg PO DAILY 09/13/17 06/23/21 calcium carbonate (Calcium Antacid) 300 mg PO BID 11/20/18 06/23/21 turmeric root extract 1,053 mg 1,053 mg PO DAILY 11/20/18 06/23/21 tablet citalopram 20 mg tablet 20 mg PO DAILY 04/22/19 06/23/21 estradiol 0.01% (0.1 mg/gram) 1 gm vaginal DAILY #42.5 grams 04/22/19 06/23/21 vaginal cream (Estrace) melatonin 10 mg tablet 10 mg PO HS PRN 01/26/20 03/25/20 omega-3 fatty acids 1,000 mg 1,000 mg PO DAILY 01/30/20 03/29/20 capsule (Fish Oil Concentrate) clobetasol 0.05 % topical gel 1 applic topical PRN 08/13/20 06/23/21 fluconazole 150 mg tablet 150 mg PO ONCE PRN 06/23/21 06/23/21 Previous Rx's ?Medication ?Instructions ?Recorded estradiol 0.01% (0.1 mg/gram) 1 gm vaginal DAILY #42.5 grams 04/22/19 vaginal cream (Estrace) Allergies Allergy/AdvReac Type Severity Reaction Status Date / Time naproxen (From Naprosyn) Allergy Severe Other (See Unverified 10/08/23 09:38 Comment) General Stated Complaint: Orthopedic ONOFRE: 4 Exam Narrative Exam Narrative: Review of Systems: All systems reviewed & are unremarkable except as noted in HPI and below Well-developed, no acute distress NCAT PERRL, normal conjunctiva RRR Unlabored respiratory effort Nondistended abdomen left ankle with some lateral swelling, no malleoli or tenderness, no medial tenderness, no tenderness or instability of the foot, no fifth metatarsal tenderness, left knee with Slight effusion, no instability, full range of motion no rashes or lesions. no focal neurologic deficits Appropriate mood and affect Course Vital Signs Vital signs: Vital Signs Temperature 36.4 C L 10/08/23 09:34 Pulse 73 10/08/23 09:34 Respiratory Rate 18 10/08/23 09:34 Blood Pressure 127/72 10/08/23 09:34 Pulse Oximetry 99 10/08/23 09:34 Temperature 36.4 C L 10/08/23 10:47 Temperature Source Skin 10/08/23 09:34 Pulse 73 10/08/23 10:47 Respiratory Rate 18 10/08/23 10:47 Respiratory Effort Normal 10/08/23 09:37 Blood Pressure 127/72 10/08/23 10:47 Blood Pressure Position Sitting 10/08/23 09:34 Pulse Oximetry 99 10/08/23 10:47 Oxygen Delivery Method Room Air 10/08/23 09:34 Oxygen Flow Rate 0 10/08/23 09:34 Medical Decision Making Emergent evaluation of left leg pain. Pain associated with a trip and fall. No other injuries sustained during the fall. Mild effusions noted on examination without any joint instability or deformity. X-ray imaging was obtained. No acute process noted though there are some significant degenerative changes. I did advise continued brace wearing, crutches as needed. Recommend that she follow-up with her PCP for an outpatient MRI as I do feel this would be beneficial, but there is no emergent indication for 1 at this time. Medical Records Medical records reviewed: Yes I reviewed the patient's medical records. Quality:SDOH Health Related Social Needs: No Data to Display PFSH All Active Problems Ankle pain, left (Acute) Effusion of knee joint, left (Acute) Acute pain of left knee (Acute) Rectal candidiasis (Acute) Vagina itching (Acute) Colon polyp, hyperplastic (Acute ~03/2020) Dog bite of hand (Acute) Trimalleolar fracture of right ankle (Acute) Medical History Acute abscess of areola (12/02/12) Cataracts, bilateral Seborrheic keratosis Heavy alcohol consumption Arthralgia Depression Synovial cyst of popliteal space [Ochoa], right knee Hyperlipidemia Osteoarthritis of right knee Surgical History S/P colonoscopy (~08/14/14) Dr. Caitlyn Serrano- Tubular adenoma at 60 cm History of ankle surgery (~09/14/17) Open reduction internal fixation of right trimalleolar ankle fracture- Dr. Ordaz Oophrectomy, Both torsion fallopian tube 1986 Abdominal hysterectomy 1986 Family History Other Heart disease Social History Smoking/Tobacco Use Status: Former Tobacco Use Quit Date: 03/26/09 Smoking risk assessment performed?: Yes Alcohol Intake: current Alcohol Intake frequency: 3 or more drinks per day Alcohol type: beer and wine Drug use: Daily Substance use type: marijuana Current gender identity: female Do you feel safe at home: Yes Do you feel safe in your relationship?: Yes Female Reproductive History Menstrual Menopause type: surgical History History 2 Para 2 Hx # Term Pregnancies Multiple births Hx # Pregnancies Ectopic pregnancies AB induced Hx Number of Living Children AB spontaneous
== END 2023-10-08 10:49 | disposition home or self-care (01) ==
LOC: ER 10:39
PROVIDERS: Emergency Provider Emergency Medicine; PCP Family Medicine
DX: M25.562 Pain in left knee (principal); M25.462 Effusion, left knee; M25.572 Pain in left ankle and joints of left foot; M11.272 Other chondrocalcinosis, left ankle and foot; M77.32 Calcaneal spur, left foot; E78.5 Hyperlipidemia, unspecified
CPT/HCPCS: 73562; 99283; 73610

== ENCOUNTER 2023-10-16 18:23 | Outpatient (REF) | payer BC, SELFPAY ==
[2023-10-16 15:41] LABS: ALT 30 U/L (14-59); AST 21 U/L (15-37); Albumin 3.5 g/dL (3.4-5.0); Alkaline Phosphatase 106 U/L (46-116); Anion Gap 9.2 mmol/L (3-11); BUN 17 mg/dL (7-18); CO2 28.8 mmol/L (21.0-32.0); CREATININE 0.9 mg/dL (0.55-1.02); Calcium 9.7 mg/dL (8.5-10.1); Calculated LDL 76 mg/dL (<100); Chloride 104 mmol/L (98-107); Cholesterol 145 mg/dL (<200); Estimated GFR 68.77 (mL/min/1.73m2); Glucose 94 mg/dL (74-106); HDL Cholesterol 57 mg/dL (40-60); Potassium 4.2 mmol/L (3.5-5.1); Sodium 142 mmol/L (136-145); Total Protein 7.4 g/dL (6.4-8.2); Triglyceride 61 mg/dL (<150)
--- OUTSIDE RECORDS SUMMARY | 2023-10-16 18:25 | XMS_ITS | Encounter Summary ---
Author Organization [facility] Address [address] [place] [address] Care Team Providers Care Banquet Supervisor Name Role Phone Joy Herman MD Primary Care Provider [phone] Encounter Details Date Type Department Care Team (Late st Contact Info) Description 03/29/2020 Lab Requisition [facility] Pathology & Laboratory Medicine - [address] [address] Niki Hussein MD [address] [place] [id number] Encounter for other general examination Social History [...] Deeper sections x3 examined. 03/30/2020 16:36 EST [facility] Attestation By the signature below, the attending physician certifies that they have 1) personally conducted a gross and/or microscopic examination of the described specimen(s), and/or personally interpreted the results of laboratory testing of the described specimen(s), and 2) personally rendered or confirmed the above diagnosis. 03/30/2020 16:36 [facility] at 1636 Clinical History H/O colon polyp 03/30/2020 16:36 [facility] Gross Description A. Received in formalin labelled with proper patient identification (initials M, L) and descending colon polyp are 2 fragments of ruiz tissue measuring 0.2 cm and 0.3 cm in greatest dimension. The specimens are submitted in A1. CALI MAN(ASCP) 03/29/2020 16:19 03/30/2020 16:36 [facility] Performing Lab [facility] 03/30/2020 16:36 [facility] Scanned Images 03/30/2020 16:36 [facility] Tissue POLYP OF COLON / Unknown 03/29/2020 10:35 EST 03/29/2020 16:04 EST Niki Hussein MD PATHOLOGY ORDERA BLES [facility] [address] [place] [address] documented in this encounter Visit Diagnoses Diagnosis Encounter for other general examination documented in this encounter Care Teams Banquet Supervisor Relationship Specialty Start Date End Date Joy Herman MD [address] [place] [phone] PCP - General 03/29/20 documented as of this encounter
--- OUTSIDE RECORDS SUMMARY | 2023-10-16 18:25 | XMS_ITS | Encounter Summary ---
Author Organization [facility] Address [address] [place] [id number] Care Team Providers Care Multimedia Journalist Name Role Phone Betina Jara MD Primary Care Provider [phone] Joy Herman MD Primary Care Provider [phone] Encounter Details Date Type Department Care Team (Late st Contact Info) Description 03/25/2020 Lab Requisition [facility] Pathology & Laboratory Medicine - [address] [address] Outr Resulting Lab, Provider Social History Tobacco [...] Outr Resulting Lab MICROBIOLOGY - GENERAL ORDERABLES [facility] [address] [place] [address] * COVID-19 TESTING (03/25/2020 10:27 EST) COVID-19 rt-PCR Result Negative Negative 03/26/2020 15:10 EST [facility] Comment: This test has [...] history, and epidemiological information. Performed on the [email or web address] Fusion instrument Performing Lab Ronda [facility] 03/26/2020 15:10 EST [facility] Swab 03/25/2020 10:2 7 EST 03/26/2020 8:30 EST Provider Outr Resulting Lab MICROBIOLOGY - GENERAL ORDERABLES [facility] [address] [place] [address] documented in this encounter Visit Diagnoses Not on filedocumented in this encounter Care Teams Multimedia Journalist Relationship Specialty Start Date End Date Betina Jara MD [address] [place] [address] PCP - General 08/20/14 03/28/20 Joy Herman MD [address] [place] [address] PCP - General 03/29/20 documented as of this encounter
--- OUTSIDE RECORDS SUMMARY | 2023-10-16 18:25 | XMS_ITS | Encounter Summary ---
Author Organization [facility] Address [address] [place] [address] Care Team Providers Care Aquatic Facility Manager Name Role Phone Unavailable Primary Care Provider Unavailabl e Encounter Details Date Type Department Care Team (Late st Contact Info) Description 01/21/2004 Results Only [facility] - Maple conversion [address] [place] [address] Reno Andre MD [address] [place] [address] Social History Tobacco Use Types Packs/Day Years [...] ? VANE CURRY ? Accession #: ? [id number] ? : ? 1955 (Age: 48) ??F [...] and submitted entirely in one cassette. ??(Dr. Hua-)/[facility] End of Report [facility] 01/21/2004 01/21/2004 15: 28 EDT Reno Andre MD PATHOLOGY ORDERABLES [facility] [address] [place] [address] documented in this encounter Visit Diagnoses Not on filedocumented in this encounter
--- OUTSIDE RECORDS SUMMARY | 2023-10-16 18:25 | XMS_ITS | Encounter Summary ---
Author Organization [facility] Address [address] [place] [address] Care Team Providers Care Head Of Marketing Adometry Name Role Phone Unavailable Primary Care Provider Unavailabl e Encounter Details Date Type Department Care Team ([facility] st Contact Info) Description 10/09/2006 Results Only [facility] - Maple conversion [address] [place] [address] Pineda Cesar DPM [address] [place] [phone] Social History Tobacco Use Types Packs/Day [...] ? VANE CURRY ? Accession #: ? [id number] ? : ? 1955 (Age: 51) ??F [...] unremarkable. ??There is no appreciable inflammation. (Dr. Olsen)/[facility] Document reviewed and electronically signed by: [...] and submitted in one cassette. (Dr. Amato ??LC)/[facility] End of Report [facility] 10/09/2006 10/11/2006 10: 25 EDT Pineda Cesar DPM PATHOLOGY ORDERA BLES [facility] [address] [place] [address] documented in this encounter Visit Diagnoses Not on filedocumented in this encounter
--- OUTSIDE RECORDS SUMMARY | 2023-10-16 18:25 | XMS_ITS | Referral Summary ---
Author Organization [facility] Address [address] [place] [address] Care Team Providers Care Board Mill Supervisor Name Role Phone Joy Herman MD Primary Care Provider [phone] Social History Tobacco Use Types Packs/Day Years Used Date Smoking Tobacco: Never Assessed Sex and Gender Information Value Date Recorded Sex Assigned at Not on file Gender Identity Not on file Sexual Orientation Not on file Plan of Treatment Not on file Care Teams Board Mill Supervisor Relationship Specialty Start Date End Date Joy Herman MD [address] [place] [phone] PCP - General 03/29/20
--- OUTSIDE RECORDS SUMMARY | 2023-10-16 18:25 | XMS_ITS | Encounter Summary ---
Author Organization [facility] Address [address] [place] [address] Care Team Providers Care Product Management Analyst Name Role Phone Unavailable Primary Care Provider Unavailabl e Encounter Details Date Type Department Care Team (Late st Contact Info) Description 08/14/2014 Results Only [facility] [phone] Pernell Montero, DO [address] [facility] [address] [place], [place] [phone] Social History Tobacco Use Types Packs/Day Years [...] ? VANE DICKSON ? Accession #: ? [id number] ? : ? 1955 (Age: 59) ??F ? Collect Date: ? 08/14/2014 ? Location: ? [facility] ? Receive Date: ? 08/14/2014 ? Provider: PERNELL MONTERO DO Copy to: ANGELA INFANTE INSOLE TACK PULLER HAND ? Final Pathologic Diagnosis: COLON, POLYP AT [...] Kumar 08/15/2014 11:15 AM End of Report [facility] 08/14/2014 20:3 9 EDT 08/14/2014 20:39 EDT Pernell Montero DO PATHOLOGY ORDER LOKI [facility] [address] [place] [address] documented in this encounter Visit Diagnoses Not on filedocumented in this encounter
--- OUTSIDE RECORDS SUMMARY | 2023-10-16 18:25 | XMS_ITS | Clinical Summary ---
Author Organization [facility] Address [address] [place] [address] Care Team Providers Care Softball Umpire Name Role Phone Joy Herman MD Primary Care Provider [phone] Social History Tobacco Use Types Packs/Day Years [...] COVID-19 Vaccine (2022- season) 2022 Care Teams Softball Umpire Relationship Specialty Start Date End Date Joy Herman MD [address] [place] [phone] PCP - General 03/29/20
--- OUTSIDE RECORDS SUMMARY | 2023-10-16 18:25 | XMS_ITS | Encounter Summary ---
Author Organization [facility] Address [address] [place] [address] Care Team Providers Care Client Specialist Name Role Phone Unavailable Primary Care Provider Unavailabl e Encounter Details Date Type Department Care Team (Latest Contact Info) Description 08/14/2014 12:18 EDT - 08/14/2014 23:59 EDT Hospital Encounter [address] [address] Unknown, Provider, Discharge Disposition: Home or Self Care Social History Tobacco Use Types Packs/Day Years Used Date Smoking Tobacco: Never Assessed Sex and Gender Information Value Date Recorded Sex Assigned at Not on file Gender Identity Not on file Sexual Orientation Not on file documented as of this encounter Discharge Disposition Disposition Code Departure Means Destination Home or Self Senior Living documented in this encounter Plan of Treatment Not on file documented as of this encounter Visit Diagnoses Not on filedocumented in this encounter
--- OUTSIDE RECORDS SUMMARY | 2023-10-16 18:25 | XMS_ITS | Encounter Summary ---
Author Organization [facility] Address [address] [place] [address] Care Team Providers Care Asphalt Mixing Machine Operator Name Role Phone Unavailable Primary Care Provider Unavailabl e Encounter Details Date Type Department Care Team (Late st Contact Info) Description 12/31/2007 Before PRISM Converted Visit (Maple) [facility] - Maple conversion [address] [place] [address] Armand Zavala MD [address] [place] [phone] Social History Tobacco Use Types Packs/Day [...] ? MALABRESPEICHER, VANE ? Accession #: ? [id number] ? : ? 1955 (Age: 52) ??F [...] given the small number of organisms. ??(Dr. Olsen)/[facility] ? Microscopic Description: ? Sections consist of a punch biopsy of skin to the mid reticular dermis. ? The stratum corneum is thickened by compact orthohyperkeratosis with subtle foci of parakeratosis. ??The epidermis shows a marked degree of irregular hyperplasia consisting of elongate and thickened rete ridges. ??The keratinocytes show ? reactive nuclear changes, but generally mature in an drug room clerk fashion. ??The ? granular layer is thickened. [...] the superficial epidermis and stratum corneum. ??(Dr. Olsen)/[facility] ? Document reviewed and electronically signed by: [...] Zavala MD PATHOLOGY ORDERABLES [facility] [address] [place] [address] documented in this encounter Visit Diagnoses Not on filedocumented in this encounter
== END 2023-10-16 18:24 | disposition home or self-care (01) ==
LOC: NCHCN 18:23
PROVIDERS: PCP Family Medicine; Visit Provider Family Medicine
DX: E78.5 Hyperlipidemia, unspecified (principal); Z00.00 Encounter for general adult medical examination without abnormal findings
CPT/HCPCS: 80053; 80061

== ENCOUNTER 2024-10-09 12:03 | Outpatient (REF) | payer BC, SELFPAY ==
[2024-10-09 17:05] LABS: ALT 28 U/L (14-59); AST 22 U/L (15-37); Albumin 3.5 g/dL (3.4-5.0); Alkaline Phosphatase 75 U/L (46-116); Anion Gap 9.5 mmol/L (3-11); BUN 19 mg/dL (7-18); Bilirubin, Total 0.6 mg/dL (0.2-1.0); CO2 25.5 mmol/L (21.0-32.0); Calcium 9.2 mg/dL (8.5-10.1); Calculated LDL 57 mg/dL (<100); Chloride 104 mmol/L (98-107); Cholesterol 136 mg/dL (<200); Estimated GFR 92.41 (mL/min/1.73m2); Glucose 90 mg/dL (74-106); HDL Cholesterol 70 mg/dL (>or=50); Potassium 3.9 mmol/L (3.5-5.1); Sodium 139 mmol/L (136-145); Total Protein 6.8 g/dL (6.4-8.2); Triglyceride 48 mg/dL (<150); Vitamin D 25 Total 79 ng/mL (30-100)
== END 2024-10-09 12:04 | disposition home or self-care (01) ==
LOC: NCHCN 12:03
PROVIDERS: PCP Family Medicine; Visit Provider Family Medicine
DX: E55.9 Vitamin D deficiency, unspecified (principal); E78.5 Hyperlipidemia, unspecified; Z00.00 Encounter for general adult medical examination without abnormal findings
CPT/HCPCS: 80053; 80061; 82306

== ENCOUNTER 2024-10-16 01:12 | Outpatient (CLI) | payer BC, SELFPAY ==
--- NOTE | 2024-10-16 | DI.MAMMO_ITS ---
Exam(s) MAMMO SCREENING EXAM: MAMMO SCREENING CLINICAL HISTORY: ADULT HEALTH EXAMINATION, SCREENING Z00.00 TECHNIQUE: Mammograms were interpreted according to the usual protocol including computer analysis with CAD system, tomosynthesis and C-view imaging. COMPARISON: 2015 through 2022 FINDINGS: The breasts are composed of mainly fatty density , Breast Density category A. No suspicious masses or suspicious microcalcifications are seen. No skin thickening or abnormal axillary lymph nodes are seen. There has been no significant change from prior exams. IMPRESSION: BI-RADS Category 1, Negative mammogram Yearly screening mammography is recommended. Breast Density- Category A - The breast are almost entirely fatty. Breast density Category C or D implies that the patient has dense breast tissue. Dense breast tissue can make it harder to find cancer on a mammogram. Dense breast tissue is also associated with an increased risk of breast cancer. This information about the result of the mammogram report was provided to the patient to raise their awareness. Use this report when you speak with the patient about their risks for breast cancer, which includes their family history. At that time, you may recommend additional screening tests (Ultrasound or MRI) as these tests may add significant information. A negative radiographic report should not delay biopsy if a dominant or clinically suspicious mass is present. Up to ten percent of cancers are not identified on mammography. A negative report may reinforce clinical impression. Adenosis and dense breasts may obscure an underlying neoplasm. False positive reports average 6 to 10%. Patient will receive a letter notifying them of these results.
== END 2024-10-16 01:32 ==
LOC: DI 01:12
PROVIDERS: PCP Family Medicine; Visit Provider Family Medicine
DX: Z12.31 Encounter for screening mammogram for malignant neoplasm of breast (principal); Z00.00 Encounter for general adult medical examination without abnormal findings; R92.2 Inconclusive mammogram; R92.313 Mammographic fatty tissue density, bilateral breasts
CPT/HCPCS: 77063; 77067